=== PATIENT | female | born 1950 | race Caucasian/White ===

== ENCOUNTER 2018-07-14 07:31 | Day surgery (SDC) | payer OTHER, MEDICARE ==
[2018-07-13 10:11] VITALS: BMI 26.1
[2018-07-14] MEDS ORDERED: ONDANSETRON 4 MG/2 ML VIAL IVPUSH PRN (08:56)
[2018-07-14] MEDS ORDERED: oxyCODONE HCL 5 MG TABLET PO PRN (08:56)
[2018-07-14] MEDS ORDERED: LACTATED RINGERS SOLUTION 1,000 ML IV SCH (09:00)
[2018-07-14] MEDS ORDERED: LIDOCAINE HCL/PF 2% SDV 5ML VIAL ONE (09:14)
[2018-07-14] MEDS ORDERED: PROPOFOL 20 ML ONE ×3 (09:14→11:04)
[2018-07-14] MEDS ORDERED: BUPIVACAINE HCL/PF 0.5% (5MG/ML) 10 ML VIAL ONE (09:14)
[2018-07-14] MEDS ORDERED: MIDAZOLAM HCL 2 MG/2 ML SINGLE DOSE VIAL ONE (09:14)
[2018-07-14] MEDS ORDERED: LIDOCAINE 1%/EPI 1:100000 (20 ML MULTI DOSE VIAL) ONE (09:15)
--- NOTE | 2018-07-14 09:19 | HP ---
Admitting History and Physical - Primary Care Physician PCP: Dayne Croft ([employer]) - Admission Chief Complaint: Painful bunion right foot with pain inferior to the right 2nd metatarsal History Source: Medical Record (Medical history deferred to PCP) - Smoking History Smoking history: Former smoker Have you smoked in the past 12 months: No If you are a former smoker, when did you quit?: 40 years ago - Alcohol/Substance Use Hx Alcohol Use: No Home Medications - Allergies Allergies/Adverse Reactions: Allergies Allergy/AdvReac Type Severity Reaction Status Date / Time Penicillins Allergy Intermediate Rash Verified 07/13/18 09:59 - Home Medications Home Medications: Ambulatory Orders Calcium Carbonate [Calcium] 1,000 mg PO BID 07/13/18 Cholecalciferol (Vitamin D3) [Vitamin D3] 1,000 units PO DAILY 07/13/18 Mercaptopurine [Purinethol -] 25 mg PO DAILY 07/13/18 Ursodiol 500 mg PO BID 07/13/18 Physical Examination Vital Signs: Vital Signs Temperature 97.7 F 07/14/18 07:53 Pulse Rate 64 07/14/18 07:53 Respiratory Rate 20 07/14/18 07:53 Blood Pressure 160/88 07/14/18 07:53 O2 Sat by Pulse Oximetry (%) 97 07/14/18 07:53 Musculoskeletal: Yes: Other (Right bunion with 35 degrees of abduction, right hammered 2nd toe, and hyperkeratosis inferior to the right 2nd metatarsal) Assessment/Plan Assessment Right bunion Right 2nd metatarsalgia Right 2nd hammertoe Plan Right Dilip Bunionectomy Right Inés Osteotomy 2nd metatarsal Right 2nd toe Arthroplasty
[2018-07-14] MEDS ORDERED: CLINDAMYCIN PHOSPHATE 600 MG/4 ML VIAL ONE (09:41)
[2018-07-14] MEDS ORDERED: LIDOCAINE 1% P/F 10 MG/ML VIAL INF ONE ×2 (09:50)
[2018-07-14] MEDS ORDERED: KETOROLAC TROMETHAMINE 30 MG/1 ML VIAL ONE (10:16)
[2018-07-14 12:29] VITALS: BP 132/63; PULSE 49
[2018-07-14 12:31] VITALS: TEMP 97.6
--- NOTE | 2018-07-14 13:35 | OP ---
DATE OF OPERATION: 07/14/2018 SURGEON: Dayne Croft DPM PREOPERATIVE DIAGNOSIS: 1. Right bunion with hallux valgus. 2. Right 2nd metatarsalgia. 3. Right 2nd metatarsophalangeal joint dorsal dislocation. 4. Hammertoe right 2nd proximal interphalangeal joint. DESCRIPTION OF PROCEDURE: Under fractional anesthesia and a surgical scrub with Betadine scrub and solution x2, the patient was draped using sterile technique. After 3 minutes of right limb elevation, a right ankle tourniquet was inflated to 250 mmHg pressure for 90 minutes. Inspection of the right foot showed a very large bunion with 35-degree hallux valgus, hammertoe of the 2nd and a prominent 2nd metatarsal. Using a No. 15 surgical blade, a linear longitudinal incision was made on the dorsal medial aspect of the right foot over the 1st metatarsophalangeal joint. The incision was deepened through fascia and retracted. The extensor chu apparatus was longitudinally incised on the medial side and reflected laterally. The joint capsule was longitudinally incised and medial and lateral sesamoidal ligaments were cut. The head of the 1st metatarsal was then delivered into the wound. A large, large, large medial eminence was present, and this was resected using a sagittal saw. I was careful to preserve the medial sagittal groove. A V-osteotomy was performed on the anatomic neck of the 1st metatarsal, and then, the 1st metatarsal head was transposed laterally. It was noticed that the 1st metatarsal bone mass seemed to be very weak. Osteoporotic changes were present within the 1st metatarsal neck. Bone was considered to be very soft and osteoporotic. Following position of the 1st metatarsal head and a normal anatomic position, two headless 2.7 bone screws were applied to the 1st metatarsophalangeal joint osteotomy, and the bone screws were made by [employer]. Following successful stable fixation of the 1st metatarsal osteotomy, the wound was copiously irrigated with sterile saline. It was noticed that on reduction of the hallux, that the proximal phalangeal medial condyle was prominent, so, this was resected using the bone saw. The wound was copiously irrigated again with sterile saline, and then, joint capsule and periosteum were reapproximated and sutured with 3-0 Vicryl. The extensor chu apparatus was sutured in a similar fashion, and then, fascia was reapproximated and sutured with 4-0 Vicryl. Skin was reapproximated and closed with 4-0 Vicryl subcuticular sutures and Steri-Strips. Attention was then directed to the right 2nd metatarsophalangeal joint and toe. Using a No. 15 blade, a dorsal incision was made over the anatomic neck of the right 2nd metatarsal. The incision was deepened through fascia and retracted exposing the joint capsule and extensor tendon. On the medial side of the extensor tendon, a longitudinal capsulotomy was performed, and the 1st metatarsal head was delivered into the wound. Using the sagittal saw, an oblique osteotomy was performed in Inés fashion, and then, the 2nd metatarsal head was shortened by 3 mm. It was fixed on the shaft using a [employer] breakoff 2.5-mm screw, 10 mm long. After stable internal fixation, the overhang was removed from the metatarsal neck, and then, deep tissues were reapproximated with 4-0 Vicryl and sutured and skin was reapproximated with subcuticular 4-0 Vicryl and Steri-Strips. Lastly, attention was directed to the right 2nd toe. A small linear longitudinal incision was made on the dorsal aspect of the toe at the proximal interphalangeal joint. The incision was deepened through fascia exposing the joint capsule. Joint capsule was transversely incised, collateral ligaments cut, and the head of the proximal phalanx was delivered into the wound. Using bone-cutting forceps, the head was resected. Wound was irrigated with sterile saline, and then, deep tissues reapproximated and closed with 4-0 Vicryl including the extensor tendon, and then, skin was reapproximated and closed with 4-0 nylon simple interrupted sutures. The ankle tourniquet was deflated after 90 minutes of inflation. Vascular perfusion immediately returned to all 5 digits, so, a dry sterile dressing was applied to the right foot. The patient tolerated the surgical procedure well and left the operating room stable, alert, awake, and in no pain. RUFINA CLINE/[id number]
== END 2018-07-14 15:00 | disposition home or self-care (01) ==
LOC: JASU-SURG 07:31
PROVIDERS: ATTEND Podiatrist Foot Surgery
PROC: 0QBQ0ZZ Excision of Right Toe Phalanx, Open Approach (ICD-10-PCS; 2018-07-14)
PROC: 0SRP0JZ Replacement of Right Toe Phalangeal Joint with Synthetic Substitute, Open Approach (ICD-10-PCS; 2018-07-14)
PROC: 0QSN04Z Reposition Right Metatarsal with Internal Fixation Device, Open Approach (ICD-10-PCS; principal; 2018-07-14 09:00)
PROC: 0SNM0ZZ Release Right Metatarsal-Phalangeal Joint, Open Approach (ICD-10-PCS; 2018-07-14 09:00)
DX: M21.611 Bunion of right foot (principal); M77.41 Metatarsalgia, right foot; S93.124D Dislocation of metatarsophalangeal joint of right lesser toe(s), subsequent encounter; M20.41 Other hammer toe(s) (acquired), right foot
CPT/HCPCS: 73630-TC-RT-FY; 94760